=== PATIENT | male | born 1955 | race African-American/Black ===

== ENCOUNTER 2016-08-14 12:09 | Day surgery (SDC) | payer OTHER ==
--- NOTE | ~2016-08-14 | EGD ---
EGD REPORT [facility] [address] [place] [place] [address] NAME: RANJAN WANG : [birth year] STATUS : REG [facility] [place] PAT#: [id number] AGE: 61 ADM/REG DATE : 08/14/16 MR#: [id number] REPORT SERV DATE: 08/14/16 DICTATED BY: NIA SHARPE DATE: 08/15/16 REPORT STATUS : Draft [facility]: [facility] DATE: 08/15/16 [facility] Patient Name: Ranjan Wang Date of : 1955 Attending MD: KATARZYNA SHARPE MD Procedure Date No Time: 08/14/2016 Procedure: Colonoscopy Indications: Screening for colorectal malignant neoplasm Referring MD: Syed Thakur MD Medicines: See the Anesthesia note for documentation of the administered medications Complications: No immediate complications. Estimated blood loss: None. Procedure: Pre-Anesthesia Assessment: - ASA Grade Assessment: III - A patient with severe systemic disease. - Prior to the procedure, a History and Physical was performed, and patient medications and allergies were reviewed. The patient's tolerance of previous anesthesia was also reviewed. The risks and benefits of the procedure and the sedation options and risks were discussed with the patient. All questions were answered, and informed consent was obtained. Prior Anticoagulants: The patient has taken no previous anticoagulant or antiplatelet agents. After reviewing the risks and benefits, the patient was deemed in satisfactory condition to undergo the procedure. After I obtained informed consent, the scope was passed under direct vision. Throughout the procedure, the patient's blood pressure, pulse, and oxygen saturations were monitored continuously. The PCF [id number] was introduced through the anus and advanced to the cecum, identified by appendiceal orifice and ileocecal valve. The ileocecal valve, appendiceal orifice and rectum were photographed. The entire colon was examined. The colonoscopy was performed without difficulty. The patient tolerated the procedure well. The quality of the bowel preparation was adequate. Findings: The perianal and digital rectal examinations were normal. A sessile polyp was found in the cecum. The polyp was 3 mm in size. The polyp was removed with a cold biopsy forceps. Resection and retrieval were complete. A few medium-mouthed diverticula were found in the sigmoid colon. Non-bleeding internal hemorrhoids were found during retroflexion and EGD REPORT [address] [address] NAME: RANJAN WANG : [birth year] STATUS : REG [facility]#: [id number] AGE: 61 ADM/REG DATE : 08/14/16 MR#: [id number] REPORT SERV DATE: 08/14/16 DICTATED BY: NIA SHARPE DATE: 08/15/16 REPORT STATUS : Draft [facility]IB[facility] BY: [facility] DATE: 08/15/16 were Grade I (internal hemorrhoids that do not prolapse). No other significant abnormalities were identified in a careful examination of the remainder of the colon. Impression: - One 3 mm polyp in the cecum. Resected and retrieved. - Diverticulosis in the sigmoid colon. - Non-bleeding internal hemorrhoids. Recommendation: - Patient has a contact number available for emergencies. The signs and symptoms of potential delayed complications were discussed with the patient. Return to normal activities tomorrow. Written discharge instructions were provided to the patient. - High fiber diet indefinitely. - Discharge patient to home. - Continue present medications. - Await pathology results. - Repeat colonoscopy is not recommended for surveillance. Procedure Code(s): --- Professional --- 74904, Colonoscopy, flexible, proximal to splenic flexure; with biopsy, single or multiple Diagnosis Code(s): --- Professional --- D12.0, Benign neoplasm of cecum K64.0, First degree hemorrhoids K57.30, Diverticulosis of large intestine without perforation or abscess without bleeding Z12.11, Encounter for screening for malignant neoplasm of colon CPT copyright 2013 [employer]. All rights reserved. The codes documented in this report are preliminary and upon company laborer review may be revised to meet current compliance requirements. KATARZYNA SHARPE MD 08/14/2016 2:31 PM This report has been signed electronically. Number of Addenda: 0 Note Initiated On: 08/14/2016 2:03 PM Scope Withdrawal Time 0 hours 8 minutes 43 seconds
[~2016-08-14 12:09] MED LIST: BUSPAR10 PO; CELEXA40 MG PO; CONSTULOSE PO; COREG3 PO; DSS PO; FLOMAX4 PO; HYDROCHLOROT25 MG PO; LIOR10 PO; NEUR600 PO; OYST-CAL500 MG PO; PRIN5 PO; PROAIR HFA INH; PROSCAR5 PO; PROTONIX PO; SEROQUEL200 MG PO; TRAZODONE150 MG PO; ULTRAM50 PO; VESICARE5 PO; VITAMIN D2000 UNIT PO; VITD PO; ZOCOR40 PO
== END 2016-08-14 23:59 | disposition home or self-care (01) ==
LOC: DMU 12:09
PROVIDERS: Internal Medicine Gastroenterology
PROC: 0DBH8ZZ Excision of Cecum, Via Natural or Artificial Opening Endoscopic (ICD-10-PCS; principal; 2016-08-14 13:30)
DX: Z12.11 Encounter for screening for malignant neoplasm of colon (principal); D12.0 Benign neoplasm of cecum; K57.30 Diverticulosis of large intestine without perforation or abscess without bleeding; K64.0 First degree hemorrhoids; I10 Essential (primary) hypertension; I25.2 Old myocardial infarction; I69.954 Hemiplegia and hemiparesis following unspecified cerebrovascular disease affecting left non-dominant side; J45.909 Unspecified asthma, uncomplicated; Z95.5 Presence of coronary angioplasty implant and graft; Z79.899 Other long term (current) drug therapy
CPT/HCPCS: 88305; 94640; J0360